=== PATIENT | male | born 1935 | race Caucasian/White ===

== ENCOUNTER → 2017-04-23 | Outpatient (CLI) | payer MEDICARE, OTHER | END | disposition home or self-care (01) | LOC: ECHO 09:34 | DX: I08.3 Combined rheumatic disorders of mitral, aortic and tricuspid valves (principal); I27.20 Pulmonary hypertension, unspecified; R53.83 Other fatigue; Z95.0 Presence of cardiac pacemaker | CPT/HCPCS: 93306 ==

== ENCOUNTER → 2017-05-15 | Outpatient (CLI) | payer MEDICARE, OTHER ==
[2017-05-15] MEDS: REGADENOSON 0.4 MG/5 ML DISP.SYRIN. IV (10:10)
== END | disposition home or self-care (01) ==
LOC: NM 09:17
DX: I49.3 Ventricular premature depolarization (principal); I47.1 Supraventricular tachycardia; I10 Essential (primary) hypertension; R53.83 Other fatigue
CPT/HCPCS: 78452; 93017; 96374; 96375; 96376; A9500; J2785

== ENCOUNTER → 2017-10-21 | Outpatient (CLI) | payer MEDICARE, OTHER | END | disposition home or self-care (01) | LOC: NM 09:57 | DX: I49.3 Ventricular premature depolarization (principal); I12.9 Hypertensive chronic kidney disease with stage 1 through stage 4 chronic kidney disease, or unspecified chronic kidney disease; N18.9 Chronic kidney disease, unspecified; Z95.0 Presence of cardiac pacemaker | CPT/HCPCS: 78472; 96374; A9560 ==

== ENCOUNTER 2018-02-20 07:55 | Emergency (ER) | payer MEDICARE, OTHER ==
[~2018-02-20] VITALS: Ht 185.4 cm; Wt 95.3 kg
[~2018-02-20 07:55] MED LIST: ALLO300T PO; AMLO5TAB7 PO; CELE200C PO; DOCU-109 PO; HYDR-3165 PO; POTA8CAP PO; SOTA80TA48 PO; TOLT4CAP PO; TRIA1TAB PO
[2018-02-20 08:26] LABS: BASO % 0 % (0-3); EOS # 0.1 x10^3/uL (0.0-0.7); EOS % 1 % (0-3); HEMATOCRIT 42.3 % (39.0-53.0); HEMOGLOBIN 14.1 g/dL (13.0-17.5); LYMPH # 2.1 x10^3/uL (1.0-4.8); LYMPH % 17 % (24-48); MEAN CORPUSCULAR HEMOGLOBIN 31 pg (25-35); MEAN CORPUSCULAR HGB CONC 33 g/dL (31-37); MEAN CORPUSCULAR VOLUME 94 fL (79-100); MONO # 0.8 x10^3/uL (0.0-1.1); MONO % 7 % (0-9); NEUT # 9.4 x10^3uL (1.8-7.7); NEUT % 76 % (31-73); PLATELET COUNT 243 x10^3/uL (140-400); RED BLOOD COUNT 4.51 x10^6/uL (4.30-5.70); RED CELL DISTRIBUTION WIDTH 15.6 % (11.5-14.5); WHITE BLOOD COUNT 12.4 x10^3/uL (4.0-11.0)
--- NOTE | 2018-02-20 08:34 | PHYS DOC ---
Past Medical History Past Medical History: Arrhythmia, Hypertension, Other Additional Past Medical Histor: GOUT, VERTIGO Past Surgical History: Pacemaker, Other Additional Past Surgical Histo: BACK SURGERY Alcohol Use: None Drug Use: None Adult General Chief Complaint Chief Complaint: ABDOMINAL PAIN [facility] HPI Patient is a 82 year old male who presents with abdomen and flank pain. Patient had onset of symptoms yesterday afternoon. He describes sudden onset of pain in the right lower abdomen and flank area. He has never had symptoms like this in the past. His surgical history is positive only for cholecystectomy 40 years earlier. Pain has been constant but has waxed and waned in intensity. He describes it to be achy in nature. There are no aggravating or alleviating factors. He did not have urinary symptoms. No nausea or vomiting. His last normal bowel movement was yesterday. No fever. Review of Systems Review of Systems Constitutional: Denies fever or chills Eyes: Denies HENT: Denies Respiratory: Denies cough Cardiovascular: No additional information not addressed in HPI GI: Denies nausea or vomiting : Denies dysuria or hematuria Musculoskeletal: Denies back pain or joint pain Integument: Denies rash or skin lesions Neurologic: Denies headache Endocrine: Denies polyuria or polydipsia All other systems were reviewed and found to be within normal limits, except as documented in this note. Current Medications Current Medications Current Medications Medications (Trade) Dose Ordered Sig/Gustavo Start Time Stop Time Status Last Admin Dose Admin Info (CONTRAST GIVEN -- Rx MONITORING) 1 each PRN DAILY PRN 02/20/18 10:45 02/20/18 12:31 DC Iohexol (Omnipaque 300 Mg/ml) 50 ml 1X ONCE 02/20/18 10:45 02/20/18 10:46 DC 02/20/18 10:49 50 ML Ketorolac Tromethamine (Toradol 30mg Vial) 30 mg 1X ONCE 02/20/18 09:00 02/20/18 09:01 DC 02/20/18 08:57 30 MG Sodium Chloride 1,000 ml @ 1,000 mls/hr 1X ONCE 02/20/18 09:00 02/20/18 09:59 DC 02/20/18 08:58 1,000 MLS/HR Allergies Allergies Allergies Coded Allergies Type Severity Reaction Last Updated Verified Penicillins Allergy Unknown Rash 02/11/15 No Physical Exam Physical Exam Constitutional: Well developed, well nourished, no acute distress, non-toxic appearance HENT: Normocephalic, atraumatic, bilateral external ears normal, oropharynx moist, 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 Eyes: PERRLA, EOMI, conjunctiva normal Neck: Normal range of motion, no tenderness Cardiovascular:Heart rate regular rhythm, no murmur Lungs & Thorax: Bilateral breath sounds clear to auscultation Abdomen: Bowel sounds normal, soft, subjectively tender over right LQ and right flank but no guarding or rebound tenderness is present Skin: Warm, dry, no erythema Extremities: No edema Neurologic: Alert and oriented X 3 Psychologic: Affect normal Current Patient Data Vital Signs Vital Signs Date Time Temp Pulse Resp B/P (MAP) Pulse Ox O2 Delivery O2 Flow Rate FiO2 02/20/18 11:52 76 158/70 (99) 94 Room Air 02/20/18 07:55 98.0 20 98.0 Lab Values Laboratory Tests Test 02/20/18 08:08 02/20/18 09:45 White Blood Count 12.4 x10^3/uL (4.0-11.0) H Red Blood Count 4.51 x10^6/uL (4.30-5.70) Hemoglobin 14.1 g/dL (13.0-17.5) Hematocrit 42.3 % (39.0-53.0) Mean Corpuscular Volume 94 fL (79-100) Mean Corpuscular Hemoglobin 31 pg (25-35) Mean Corpuscular Hemoglobin Concent 33 g/dL (31-37) Red Cell Distribution Width 15.6 % (11.5-14.5) H Platelet Count 243 x10^3/uL (140-400) Neutrophils (%) (Auto) 76 % (31-73) H Lymphocytes (%) (Auto) 17 % (24-48) L Monocytes (%) (Auto) 7 % (0-9) Eosinophils (%) (Auto) 1 % (0-3) Basophils (%) (Auto) 0 % (0-3) Neutrophils # (Auto) 9.4 x10^3uL (1.8-7.7) H Lymphocytes # (Auto) 2.1 x10^3/uL (1.0-4.8) Monocytes # (Auto) 0.8 x10^3/uL (0.0-1.1) Eosinophils # (Auto) 0.1 x10^3/uL (0.0-0.7) Basophils # (Auto) 0.0 x10^3/uL (0.0-0.2) Sodium Level 140 mmol/L (136-145) Potassium Level 3.9 mmol/L (3.5-5.1) Chloride Level 105 mmol/L (98-107) Carbon Dioxide Level 25 mmol/L (21-32) Anion Gap 10 (6-14) Blood Urea Nitrogen 19 mg/dL (8-26) Creatinine 1.6 mg/dL (0.7-1.3) H Estimated GFR (Cockcroft-Gault) 41.4 Glucose Level 130 mg/dL (70-99) H Calcium Level 8.5 mg/dL (8.5-10.1) Total Bilirubin 0.5 mg/dL (0.2-1.0) Direct Bilirubin 0.2 mg/dL (0.0-0.2) Aspartate Amino Transferase (AST) 61 U/L (15-37) H Alanine Aminotransferase (ALT) 54 U/L (16-63) Alkaline Phosphatase 129 U/L (46-116) H Total Protein 7.4 g/dL (6.4-8.2) Albumin 3.0 g/dL (3.4-5.0) L Lipase 160 U/L (73-393) Urine Collection Type Void Urine Color Yellow Urine Clarity Clear Urine pH 6.5 Urine Specific [place] 1.015 Urine Protein 30 mg/dL (NEG-TRACE) Urine Glucose (UA) Negative mg/dL (NEG) Urine Ketones (Stick) Trace mg/dL (NEG) Urine Blood Negative (NEG) Urine Nitrite Negative (NEG) Urine Bilirubin Negative (NEG) Urine Urobilinogen Dipstick 0.2 mg/dL (0.2 mg/dL) Urine Leukocyte Esterase Negative (NEG) Urine RBC 1-2 /HPF (0-2) Urine WBC 1-4 /HPF (0-4) Urine Squamous Epithelial Cells Few /LPF Urine Bacteria Few /HPF (0-FEW) Urine Mucus Mod /LPF Laboratory Tests 02/20/18 08:08 Laboratory Tests 02/20/18 08:08 EKG EKG [] Radiology/Procedures Radiology/Procedures FINDINGS: Heart size is normal with partial visualization of a transvenous cardiac conduction leads. Minimal subpleural atelectasis or scarring in the lung bases. There is a 0.3 cm noncalcified pulmonary nodule in the subpleural left lower lobe series 2/image 5. Liver, spleen, adrenal glands and left kidney are unremarkable. Cholecystectomy. Common bile duct is normal in size for age. There is a hypodensity in the pancreatic head measuring 1.3 cm series 2/image 37. Mild fatty atrophy of the pancreas. 4 mm obstructive calculus at the distal right ureter just proximal to the UVJ with mild upstream hydroureteronephrosis, right perinephric and periureteral stranding and slightly delayed nephrogram Small and large bowel loops are normal in caliber without obstruction. Appendix is normal in appearance. No abdominal free fluid. No pneumoperitoneum. No retroperitoneal or mesenteric lymphadenopathy. Mild distended unopacified urinary bladder, prostate and seminal vesicles are unremarkable. No iliac or inguinal lymphadenopathy. There are no destructive osseous lesions. IMPRESSION: 1. 4 mm obstructive calculus in the distal right ureter just proximal to the UVJ with mild upstream hydroureteronephrosis. 2. Right perinephric and periureteral stranding, may be reactive to the stone, though ascending urinary tract infection is not excluded. 3. 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 According to the guidelines, follow-up MRCP with contrast in 12 months is recommended. 4. Tiny, 0.3 cm noncalcified left lung pulmonary nodule. In a low-risk patient, finding is considered benign. In a high-risk patient, follow-up CT chest in 6 months is recommended.[] Course & Med Decision Making Course & Med Decision Making Pertinent Labs and Imaging studies reviewed. (See chart for details) Patient is seen and examined shortly after arrival to his room. Labs collected. UA pending urine sample. Toradol for pain. IVF's. CT pending results of UA. Patient was evaluated in the emergency department for right flank and right lower abdominal pain. He was noted to have a kidney stone, 4 mm at the right UVJ. Urinalysis did not reveal infection. Patient's pain was relieved after some IV fluids and Toradol in the ER. Patient was discharged home with pain medication. 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 He was provided a prescription for Valtrex for treatment of this. Patient was advised to follow- up with his primary care doctor. Incidentally, he did have some findings in the pancreas which will require repeat imaging in the next 12 months. He was provided with a copy of the CT report and advised to follow-up with his primary care doctor to seek this imaging in the future. Patient was feeling improved and was agreeable to the plan of care including discharge. All of his questions were answered prior to discharge home. Dragon Disclaimer Dragon Disclaimer This electronic medical record was generated, in whole or in part, using a voice recognition dictation system. Departure Departure Disposition: 01 HOME, SELF-CARE Condition: GOOD Referrals: LINCOLN BLANCO Jr, MD (PCP) Scripts Valacyclovir Hcl (VALTREX) 1,000 Mg Tablet 1 TAB PO UD, #60 TAB 2 Refills Take this medication, one tablet three times daily for the next 5 to 7 days. After that, stop taking. Restart the medication when you have onset of cold sore symptoms in the future. Prov: RADHA MOTA DO 02/20/18 Hydrocodone/Apap 5-325 (NORCO 5-325 TABLET) 1 Each Tablet 1-2 EACH PO PRN Q6HRS PRN for SEVERE PAIN, #15 as needed for pain Prov: RADHA MOTA DO 02/20/18 RADHA MOTA DO Feb 20, 2018 08:34
[2018-02-20 08:40] LABS: CALCIUM 8.5 mg/dL (8.5-10.1); CREATININE 1.6 mg/dL (0.7-1.3); GFR 41.4; POTASSIUM 3.9 mmol/L (3.5-5.1)
[2018-02-20 08:46] LABS: DIRECT BILIRUBIN 0.2 mg/dL (0.0-0.2); TOTAL BILIRUBIN 0.5 mg/dL (0.2-1.0); TOTAL PROTEIN 7.4 g/dL (6.4-8.2)
[2018-02-20] MEDS ORDERED: IV NORMAL SALINE 1000ML BAG 1,000 ML IV ONE (09:00)
[2018-02-20] MEDS ORDERED: KETOROLAC 30 MG/ML VIAL. IV ONE (09:00)
[2018-02-20 09:55] LABS: BILIRUBIN,URINE NEGATIVE (NEG); CLARITY,URINE CLEAR; COLOR,URINE YELLOW; NITRITE,URINE NEGATIVE (NEG); PH,URINE 6.5; PROTEIN,URINE 30 mg/dL (NEG-TRACE); UROBILINOGEN,URINE 0.2 mg/dL (0.2 mg/dL)
[2018-02-20 10:03] LABS: BACTERIA,URINE FEW /HPF (0-FEW); SQUAMOUS EPITHELIAL CELL,UR FEW /LPF
[2018-02-20] MEDS ORDERED: CONTRAST GIVEN. MC PRN (10:45)
[2018-02-20] MEDS ORDERED: IOHEXOL 300 MG/ML 100ML VIAL. IV ONE (10:45)
--- NOTE | 2018-02-20 11:27 | RAD ---
CT abdomen and pelvis with contrast 02/20/2018 CLINICAL INDICATION: Right lower quadrant abdominal pain, right flank pain. COMPARISON: None. TECHNIQUE: Multiple CT images of the abdomen and pelvis were obtained following the intravenous and ministration of 50 mL Omnipaque 300. *One or more of the following individualized dose reduction techniques were utilized for this examination: 1. Automated exposure control. 2. Adjustment of the mA and/or kV according to patient size. 3. Use of iterative reconstruction technique. FINDINGS: Heart size is normal with partial visualization of a transvenous cardiac conduction leads. Minimal subpleural atelectasis or scarring in the lung bases. There is a 0.3 cm noncalcified pulmonary nodule in the subpleural left lower lobe series 2/image 5. Liver, spleen, adrenal glands and left kidney are unremarkable. Cholecystectomy. Common bile duct is normal in size for age. There is a hypodensity in the pancreatic head measuring 1.3 cm series 2/image 37. Mild fatty atrophy of the pancreas. 4 mm obstructive calculus at the distal right ureter just proximal to the UVJ with mild upstream hydroureteronephrosis, right perinephric and periureteral stranding and slightly delayed nephrogram Small and large bowel loops are normal in caliber without obstruction. Appendix is normal in appearance. No abdominal free fluid. No pneumoperitoneum. No retroperitoneal or mesenteric lymphadenopathy. Mild distended unopacified urinary bladder, prostate and seminal vesicles are unremarkable. No iliac or inguinal lymphadenopathy. There are no destructive osseous lesions. IMPRESSION: 1. 4 mm obstructive calculus in the distal right ureter just proximal to the UVJ with mild upstream hydroureteronephrosis. 2. Right perinephric and periureteral stranding, may be reactive to the stone, though ascending urinary tract infection is not excluded. 3. 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 According to the guidelines, follow-up MRCP with contrast in 12 months is recommended. 4. Tiny, 0.3 cm noncalcified left lung pulmonary nodule. In a low-risk patient, finding is considered benign. In a high-risk patient, follow-up CT chest in 6 months is recommended. Electronically signed by: Haja Enamorado MD (02/20/2018 11:24 AM) [facility]
[2018-02-20 11:52] VITALS: BP 158/70
[2018-02-20] MEDS ORDERED: HYDR-3164 PO (12:15)
[2018-02-20] MEDS ORDERED: VALA10005 PO (12:15)
== END 2018-02-20 12:31 | disposition home or self-care (01) ==
LOC: ER 07:55
DX: R10.31 Right lower quadrant pain (principal); I10 Essential (primary) hypertension; M10.9 Gout, unspecified; Z95.0 Presence of cardiac pacemaker; Z98.890 Other specified postprocedural states; Z88.0 Allergy status to penicillin
CPT/HCPCS: 36415; 74177; 80048; 80076; 81001; 83690; 85025; 96374; 99284; J1885; J7030; Q9967

== ENCOUNTER → 2018-05-08 | Outpatient (CLI) | payer MEDICARE, OTHER ==
[~2018-05-08] MED LIST changes: +AMLO5TAB10 PO; -AMLO5TAB7 PO; +HYDR-3164 PO; +VALA10005 PO
--- NOTE | 2018-05-08 14:58 | CARD ---
MR#: [id number] Date of Study: 05/08/2018 Ordering Physician: KALI TELLEZ, Referring Physician: KALI TELLEZ, Tech: Malathi Garvin [facility] APPROVED REPORT EXAM: Two-dimensional and M-mode echocardiogram with Doppler and color Doppler. Other Information Quality : AverageHR: 70bpm Rhythm : NSR INDICATION SSS 2D DIMENSIONS RVDd3.4 (2.9-3.5cm)Left Atrium(2D)4.4 (1.6-4.0cm) IVSd1.1 (0.7-1.1cm)Aortic Root(2D)3.6 (2.0-3.7cm) LVDd6.2 (3.9-5.9cm)LVOT Diameter2.5 (1.8-2.4cm) PWd0.9 (0.7-1.1cm)LVDs5.4 (2.5-4.0cm) FS (%) 13.5 %SV54.9 ml LVEF(%)28.3 (>50%) M-Mode DIMENSIONS Left Atrium(MM)5.32 (2.5-4.0cm)Aortic Root3.62 (2.2-3.7cm) Aortic Valve AoV Peak Navneet.114.5cm/sAoV VTI17.5cm AO Peak GR.5.2mmHgLVOT Peak Navneet.72.8cm/s AO Mean GR.2mmHgAVA (VMAX)3.20cm2 FLORIAN (VTI)3.67pn9RD P 1/2 Unxu776ub Mitral Valve MV E Jdaaqsnt24.0cm/sMV E Peak Gr.4mmHg MV DECEL KOSI564qdBA A Omzbvcaw43.7cm/s MV E Mean Gr.2mmHgE/A Ratio0.4 MV A Raxyqhfv498mt Pulmonary Valve PV Peak Tvtngryk439.6cm/s Tricuspid Valve TR P. Fxepxlfy073sl/sRAP UZIFSICC5exNu TR Peak Gr.83fwCmCCMA75ogRi LEFT VENTRICLE The Left Ventricle is mildly dilated. Proximal septal thickening is noted. Severe hypokinesis of base to mid inferior and posterior logan. The Ejection Fraction is 40%. Transmitral Doppler flow pattern is Grade I-abnormal relaxation pattern. RIGHT VENTRICLE The right ventricle is normal size. There is normal right ventricular wall thickness. The right ventr icular systolic function is normal. ATRIA The left atrium is mildly dilated. The right atrium is mildly dilated. The interatrial septum is inta ct with no evidence for an atrial septal defect or patent foramen ovale as noted on 2-D or Doppler im aging. AORTIC VALVE The aortic valve is thickened but opens well. The aortic valve is trileaflet. Doppler and Color Flow revealed mild to moderate aortic regurgitation. There is no significant aortic valvular stenosis. MITRAL VALVE The mitral valve is normal in structure and function. There is no evidence of mitral valve prolapse. There is no mitral valve stenosis. Doppler and Color-flow revealed mild mitral regurgitation. TRICUSPID VALVE The tricuspid valve is normal in structure and function. Doppler and Color Flow revealed trace tricus pid regurgitation. The PA pressure was estimated at 14 mmHg. There is no tricuspid valve prolapse or vegetation. There is no tricuspid valve stenosis. PULMONIC VALVE The pulmonary valve is normal in structure and function. Doppler and Color Flow revealed mild pulmoni c valvular regurgitation. There is no pulmonic valvular stenosis. GREAT VESSELS The aortic root is mildly enlarged. The ascending aorta is normal in size. The IVC is normal in size and collapses >50% with inspiration. PERICARDIAL EFFUSION There is no evidence of significant pericardial effusion. Critical Notification Critical Value: No <Conclusion> Severe hypokinesis of base to mid inferior and posterior logan. The Ejection Fraction is 40%. Mild to moderate aortic regurgitation. Mild mitral regurgitation. Trace tricuspid regurgitation. The PA pressure was estimated at 14 mmHg. There is no evidence of significant pericardial effusion. Signed by : Neel Ruby, Electronically Approved : 05/08/2018 14:56:05
== END | disposition home or self-care (01) ==
LOC: ECHO 13:44
PROVIDERS: ATTEND Internal Medicine Cardiovascular Disease
DX: I08.0 Rheumatic disorders of both mitral and aortic valves (principal); I42.9 Cardiomyopathy, unspecified; I48.0 Paroxysmal atrial fibrillation; I10 Essential (primary) hypertension
CPT/HCPCS: 93306

== ENCOUNTER → 2019-03-31 | Outpatient (CLI) | payer MEDICARE, OTHER ==
[~2019-03-31] MED LIST changes: +CONTRAST GIVEN. MC PRN; +IOHEXOL 300 MG/ML 100ML VIAL. IV ONE; -POTA8CAP PO; +POTA8CAP19 PO
[2019-03-31 15:29] LABS: CREATININE 1.2 mg/dL (0.7-1.3); GFR 57.5
--- NOTE | 2019-03-31 17:50 | RAD ---
Examination: CT ABDOMEN WO/W CONTRAST History: Pancreatic mass Comparison/Correlation: 02/20/2018 CT abdomen and pelvis with contrast Findings: Axial images of the abdomen were obtained prior to and following IV contrast. Post contrast imaging was performed in the arterial and hepatic venous phases. Sagittal and coronal reformatted images were provided. Pacemaker leads are identified. Left lung base there is a 0.3 cm nodule which is unchanged. Cholecystectomy noted. Subtle hyperdensity involving the gallbladder fossa on axial image 52 is noted. This may represent a renal relative fatty sparing. No abnormal enhancement. Spleen is normal. Pancreatic uncinate low-attenuation lesion measuring up to 1.5 cm diameter. No definite enhancement. Hounsfield units of 6 noted on precontrast as well as postcontrast images. Kidneys are unremarkable. No enlarged abdominal lymph nodes. Abdominal aorta is unremarkable for patient's age. No significant plaque noted. No significant stenosis involving the superior mesenteric or inferior mesenteric arteries. Renal arteries are widely patent. No abdominal ascites. Confluent calcific density involving the lower thoracic and upper lumbar spine noted may represent diffuse idiopathic skeletal hyperostosis. 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 Interval follow-up in 1 year to assess stability is recommended. PQRS Compliance Statement: One or more of the following individualized dose reduction techniques were utilized for this examination: 1. Automated exposure control 2. Adjustment of the mA and/or kV according to patient size 3. Use of iterative reconstruction technique Electronically signed by: Kwesi Parsons MD (03/31/2019 5:47 PM) [facility]
== END | disposition home or self-care (01) ==
LOC: CT 14:49
PROVIDERS: ATTEND Internal Medicine Gastroenterology
DX: K86.89 Other specified diseases of pancreas (principal); R91.1 Solitary pulmonary nodule; Z90.49 Acquired absence of other specified parts of digestive tract
CPT/HCPCS: 36415; 74170; 82565; 84520; Q9967

== ENCOUNTER → 2019-05-05 | Outpatient (CLI) | payer MEDICARE, OTHER ==
[~2019-05-05] MED LIST changes: -CONTRAST GIVEN. MC PRN; -IOHEXOL 300 MG/ML 100ML VIAL. IV ONE
--- NOTE | 2019-05-05 16:20 | CARD ---
MR#: [id number] Date of Study: 05/05/2019 Ordering Physician: KALI PEREZ, Referring Physician: KALI PEREZ, Tech: Lidia Crespo APPROVED REPORT EXAM: Two-dimensional and M-mode echocardiogram with Doppler and color Doppler. Other Information Quality : AverageHR: 71bpm INDICATION Cardiomyopathy Surgery/Intervention Pacemaker: Date: 2013 RISK FACTORS Hypertension 2D DIMENSIONS RVDd3.9 (2.9-3.5cm)Left Atrium(2D)3.9 (1.6-4.0cm) IVSd1.3 (0.7-1.1cm)Aortic Root(2D)3.2 (2.0-3.7cm) LVDd5.5 (3.9-5.9cm)LVOT Diameter2.3 (1.8-2.4cm) PWd1.1 (0.7-1.1cm)LVDs3.5 (2.5-4.0cm) FS (%) 36.0 %SV96.1 ml LVEF(%)65.0 (>50%) Aortic Valve AoV Peak Navneet.133.2cm/sAoV VTI23.6cm AO Peak GR.7.1mmHgLVOT Peak Navneet.94.1cm/s LVOT VTI 18.21cmAO Mean GR.4mmHg FLORIAN (VMAX)2.60uw5OHL (VTI)3.30cm2 AI P 1/2 Hocd615ix Mitral Valve MV E Xmwmxeaq75.0cm/sMV DECEL URJF402ha MV A Mqxxvhsx86.1cm/sMV TBJ52vv E/A Ratio0.6MVA (PHT)3.49cm2 TDI E/Lateral E'7.6E/Medial E'8.5 Pulmonary Valve PV Peak Eolzqmux324.4cm/sPV Peak Grad.4mmHg Tricuspid Valve TR P. Kzvdomdn544ij/sRAP IUNJZOSL2laMr TR Peak Gr.32kqJfWYHW68npOe Pulmonary Vein S1 Wybpkmoc30.8cm/sD2 Fjfdthio02.0cm/s PVa vamgsmkw559tjhl LEFT VENTRICLE The left ventricle is normal size. There is mild concentric left ventricular hypertrophy. The left ve ntricular systolic function is normal and the ejection fraction is within normal range. The Ejection Fraction is 50-55%. Wall motion consistent with conduction abnormality. Otherwise, grossly normal wal l motion. Transmitral Doppler flow pattern is Grade I-abnormal relaxation pattern. RIGHT VENTRICLE The right ventricle is normal size. There is normal right ventricular wall thickness. The right ventr icular systolic function is normal. There is a pacemaker lead in the right ventricle. ATRIA The left atrium is borderline dilated. The right atrium size is normal. There is a pacemaker lead see n in the right atrium. The atrial septum is aneurysmal. AORTIC VALVE The aortic valve is thickened but opens well. Doppler and Color Flow revealed moderate aortic regurgi tation. There is no significant aortic valvular stenosis. MITRAL VALVE The mitral valve is thickened but opens well. There is no evidence of mitral valve prolapse. There is no mitral valve stenosis. Doppler and Color-flow revealed trace mitral regurgitation. TRICUSPID VALVE The tricuspid valve is normal in structure and function. Doppler and Color Flow revealed trace tricus pid regurgitation with an estimated PAP of 24 mmHg. There is no tricuspid valve stenosis. PULMONIC VALVE The pulmonic valve is not well visualized. Doppler and Color Flow revealed trace pulmonic valvular re gurgitation. There is no pulmonic valvular stenosis. GREAT VESSELS The aortic root is normal in size. The ascending aorta is normal in size. The IVC is normal in size a nd collapses >50% with inspiration. PERICARDIAL EFFUSION There is no evidence of significant pericardial effusion. Critical Notification Critical Value: No <Conclusion> The left ventricular systolic function is normal and the ejection fraction is within normal range. Th e Ejection Fraction is 50-55%. Wall motion consistent with conduction abnormality. Otherwise, grossly normal wall motion. There is a pacemaker lead in the right ventricle. Doppler and Color Flow revealed moderate aortic regurgitation. Signed by : Kali Perez, Electronically Approved : 05/05/2019 16:19:39
== END | disposition home or self-care (01) ==
LOC: ECHO 13:02
PROVIDERS: ATTEND Internal Medicine Cardiovascular Disease
DX: I35.1 Nonrheumatic aortic (valve) insufficiency (principal); I42.9 Cardiomyopathy, unspecified
CPT/HCPCS: 93306

== ENCOUNTER → 2020-04-12 | Outpatient (CLI) | payer MEDICARE, OTHER ==
[~2020-04-12] MED LIST changes: +AMLO-186 PO; -AMLO5TAB10 PO; +CONTRAST GIVEN. MC PRN; +IOHEXOL 240 MG/ML 50ML VIAL. PO ONE; +IOHEXOL 300 MG/ML 100ML VIAL. IV ONE
[2020-04-12 14:26] LABS: CREATININE 1.3 mg/dL (0.7-1.3); GFR 52.3
--- NOTE | 2020-04-13 12:46 | RAD ---
EXAM: CT Abdomen with IV contrast INDICATION: Reason: F/U PANCREATIC CYST / Spl. Instructions: OMNI 300 INJ 60 MLS, PO OMNI 240 30 MLS / History: TECHNIQUE: Multi-detector row CT images were acquired from the lung bases through the abdomen with th e use of IV contrast. Sagittal and coronal images were acquired from the transaxial data. All CT scan s performed at this facility utilize dose optimization techniques as appropriate to the exam, includi ng the following: Automated exposure control and adjustment of the mA and/or KV according to patient size (this includes techniques or standardized protocols for targeted exams where dose is indication/ reason for exam). IV CONTRAST: Administered ORAL CONTRAST: Administered COMPARISON: 03/31/2019 and 02/20/[address]s with and without IV contrast FINDINGS: LOWER CHEST: Interval decrease in size of a 4 mm nodule (previously 5.7 mm) in the peripheral left lower lobe (josh ge 6 of series 4) compared with the prior 2 examinations. No developing nodules, mass or suspicious a bnormalities. Incidental pacemaker wires in the right heart and coronary sinus noted. LIVER: Unremarkable BILIARY SYSTEM: Gallbladder surgically absent. Bile ducts are not dilated. PANCREAS: There is slight increase in size of the cystic mass in the pancreatic head, now measuring 2.4 x 2.2 x 3.1 cm (images 62 axial series 2, and 78 on sagittal series 6) compared with 2.0 x 1.7 x 2.8 cm in 2019 and 1.8 x 1.5 x 2.8 cm in 2018. No pancreatic ductal dilation or peripancreatic soft tissue stranding. There is mild generalized parenchymal volume loss, similar to prior. SPLEEN: Unremarkable ADRENALS: Unremarkable KIDNEYS & URETERS: No hydronephrosis or calcified renal stones. No recurrence of perirenal soft tiss ue stranding evident in 2018 and the right kidney. There remains mild residual cortical scarring. GASTROINTESTINAL: Enteric contrast opacifies both the small and large bowel but the descending colon shows abnormal thickening and fibrofatty infiltration of the wall extending to the base of the append ix. Wall thickening also involves the terminal ileum were hyperemia in the mesentery is evident. The appendix tip abuts the sigmoid colon. MESENTERY/PERITONEUM/RETROPERITONEUM: Unremarkable VASCULAR: Unremarkable LYMPH NODES: Multiple mildly enlarged mesenteric lymph nodes are present largest measuring 1.3 cm lo ng axis (image 86 series 2) right upper quadrant.. OSSEOUS & SOFT TISSUES: No acute or aggressive osseous lesions. IMPRESSION: 1. Enlarging low-density mass in the pancreatic head, suspicious for an IPMN, now measuring up to 3.1 cm. Although MRI is the ideal noninvasive imaging study of choice in further characterization, if th e patient is not an MRI candidate, consider ERCP with endoscopic ultrasound to further characterize a nd possibly sample the pancreatic head mass. 2. Evidence of inflammatory changes in the terminal ileum and ascending colon. Query smoldering infla mmatory bowel disease. Electronically signed by: Mark Osborne MD (04/13/2020 12:44 PM) [id number]
== END ==
LOC: CT 13:59
PROVIDERS: ATTEND Internal Medicine Gastroenterology
DX: K86.89 Other specified diseases of pancreas (principal); R91.1 Solitary pulmonary nodule; N28.89 Other specified disorders of kidney and ureter; R59.0 Localized enlarged lymph nodes
CPT/HCPCS: 36415; 74160; 82565; 84520; Q9966; Q9967

== ENCOUNTER → 2020-07-26 | Outpatient (CLI) | payer MEDICARE, OTHER ==
[~2020-07-26] MED LIST changes: -CONTRAST GIVEN. MC PRN; -IOHEXOL 240 MG/ML 50ML VIAL. PO ONE; -IOHEXOL 300 MG/ML 100ML VIAL. IV ONE
--- NOTE | 2020-07-26 14:51 | CARD ---
MR#: [id number] Date of Study: 07/26/2020 Ordering Physician: KALI TELLEZ, Referring Physician: KALI TELLEZ, Tech: Lidia Mccannkimberlyart, [facility] APPROVED REPORT EXAM: Two-dimensional and M-mode echocardiogram with Doppler and color Doppler. Other Information Quality : AverageHR: 79bpm INDICATION Cardiomyopathy Surgery/Intervention Pacemaker: Date: 2017 RISK FACTORS Hypertension 2D DIMENSIONS RVDd3.9 (2.9-3.5cm)Left Atrium(2D)4.1 (1.6-4.0cm) IVSd1.3 (0.7-1.1cm)Aortic Root(2D)3.8 (2.0-3.7cm) LVDd6.1 (3.9-5.9cm)LVOT Diameter2.1 (1.8-2.4cm) PWd1.2 (0.7-1.1cm)LVDs3.2 (2.5-4.0cm) FS (%) 46.4 %SV141.5 ml LVEF(%)76.9 (>50%) Aortic Valve AoV Peak Navneet.117.4cm/sAoV VTI21.9cm AO Peak GR.5.5mmHgLVOT Peak Navneet.80.9cm/s LVOT VTI 15.90cmAO Mean GR.3mmHg FLORIAN (VMAX)1.78kz6LXH (VTI)2.49cm2 AI P 1/2 Hwar303tu Mitral Valve MV E Dbgfyphq63.5cm/sMV DECEL [id number] MV A Imdvlpte12.2cm/sMV CNQ91dz E/A Ratio0.6MVA (PHT)2.61cm2 TDI E/Lateral E'8.2E/Medial E'11.2 Pulmonary Valve PV Peak Vnkqzois465.2cm/sPV Peak Grad.4mmHg Tricuspid Valve TR P. Gzsrvdod321na/sRAP LNWGXSZR4jeDj TR Peak Gr.24miJrYMZJ32tgKn Pulmonary Vein S1 Enyagzgq14.8cm/sD2 Dgbkpkgq40.1cm/s PVa [id number] LEFT VENTRICLE The left ventricle is normal size. There is mild to moderate concentric left ventricular hypertrophy. The left ventricular systolic function is normal. The Ejection Fraction is 50-55%. Septal motion con sistent with conduction abnormality. Transmitral Doppler flow pattern is Grade I-abnormal relaxation pattern. RIGHT VENTRICLE The right ventricle is normal size. There is normal right ventricular wall thickness. The right ventr icular systolic function is normal. There is a pacemaker lead in the right ventricle. ATRIA The left atrium size is normal. The right atrium is mildly dilated. The interatrial septum is intact with no evidence for an atrial septal defect or patent foramen ovale as noted on 2-D or Doppler imagi ng. AORTIC VALVE The aortic valve is thickened but opens well. Doppler and Color Flow revealed mild aortic regurgitati on. Calculated aortic valve area is 2.11 cm2 with maximum pressure gradient of 10 mmHg and mean press ure gradient of 4 mmHg. There is no significant aortic valvular stenosis. MITRAL VALVE The mitral valve is normal in structure and function. There is no evidence of mitral valve prolapse. There is no mitral valve stenosis. Doppler and Color-flow revealed trace mitral regurgitation. TRICUSPID VALVE The tricuspid valve is normal in structure and function. Doppler and Color Flow revealed trace tricus pid regurgitation with an estimated PAP of 26 mmHg. There is no tricuspid valve stenosis. PULMONIC VALVE The pulmonic valve is not well visualized. Doppler and Color Flow revealed trace to mild pulmonic chaparro vular regurgitation. GREAT VESSELS The aortic root is borderline enlarged measuring 3.8 cm. The ascending aorta is normal in size. The I VC is normal in size and collapses >50% with inspiration. PERICARDIAL EFFUSION There is no evidence of significant pericardial effusion. Critical Notification Critical Value: No <Conclusion> The left ventricular systolic function is normal. The Ejection Fraction is 50-55%. Septal motion consistent with conduction abnormality. Pacer lead noted RA/RV. Transmitral Doppler flow pattern is Grade I-abnormal relaxation pattern. Mild aortic regurgitation. Trace mitral regurgitation. Trace tricuspid regurgitation with an estimated PAP of 26 mmHg. There is no evidence of significant pericardial effusion. Signed by : Neel Ruby, Electronically Approved : 07/26/2020 14:50:38
== END ==
LOC: ECHO 08:43
PROVIDERS: ATTEND Internal Medicine Cardiovascular Disease
DX: I08.8 Other rheumatic multiple valve diseases (principal); I42.8 Other cardiomyopathies; Z95.0 Presence of cardiac pacemaker
CPT/HCPCS: 93306